=== PATIENT | male | born 1955 | race Caucasian/White ===

== ENCOUNTER 2017-09-15 18:00 | Emergency (ER) | payer OTHER ==
--- NOTE | 2017-09-15 18:13 | CPEKG ---
Heart Rate: 66 RR Interval: 909 P-R Interval: 188 QRSD Interval: 98 QT Interval: 416 QTC Interval: 436 P [place]: 23 QRS [place]: 3 T Wave [place]: 3 EKG Severity - OTHERWISE NORMAL ECG - EKG Impression: SINUS ARRHYTHMIA, RATE 59-72 EKG Impression: VENTRICULAR PREMATURE COMPLEX Electronically Signed By: Thiago King 15-Sep-2017 20:13:19
[2017-09-15 18:27] VITALS: RESP 20; TEMP 98.6
[2017-09-15 18:43] LABS: PLATELET COUNT 329 10^3/uL (150-400)
--- NOTE | 2017-09-15 19:02 | EDPHY ---
H & P Stated Complaint: irregular heartbeat Time Seen by Provider: 09/15/17 18:09 HPI/ROS: This patient reports onset of heart palpitations described as extra beats over the past 4-5 days. He Sondra, master esthetician Wednesday due to the symptoms and is scheduled for an echocardiogram tomorrow and Holter monitor fitting for Wednesday. He reports increased frequency today feeling and extra beat every 3rd to 90 Peter so his heart that feels similar to prior PVCs. The patient's background history is notable for atrial fibrillation [place] [address] Estrada. He had 1 episode of atrial fibrillation thereafter the was cardioverted to sinus rhythm successfully. That was 2 months after the initial ablation. He denies any other associated symptoms with his current heart palpitations. ROS: Constitutional: No fatigue, fevers or chills. HEENT: Mild nasal congestion with slight sinus pressure over the past week. Pulmonary: Occasional cough. No shortness of breath Cardiovascular: No chest pain. Is mild left neck ache 1 of 10 intensity GI: No abdominal pain. No diarrhea. No nausea or vomiting Integumentary: No skin rash or pallor Neuro: No complaints 10 point ROS is otherwise negative Source: Patient Exam Limitations: No limitations - Personal History Current Tetanus/Diphtheria Vaccine: Yes Current Tetanus Diphtheria and Acellular Pertussis (TDAP): Yes - Medical/Surgical History Hx Asthma: No Hx Chronic Respiratory Disease: No Hx Diabetes: No Hx Cardiac Disease: Yes Hx Renal Disease: No Hx Cirrhosis: No Hx Alcoholism: No Hx HIV/AIDS: No Hx Splenectomy or Spleen Trauma: No Other PMH: Celiac Disease; menisectomy right knee; cardiac ablation September 2014 for Afib - Family History Significant Family History: No pertinent family hx - Social History Smoking Status: Current some day smoker (Cigars once or twice a week) Alcohol Use: Occasionally Drug Use: None - Physical Exam Exam: Vital signs are normal General Appearance: Pleasant 62-year-old male appears younger than stated age Alert, no distress. Eyes: Pupils equal and round no pallor or injection. ENT, Mouth: Mucous membranes moist. Respiratory: There are no retractions, lungs are clear to auscultation. Cardiovascular: Regular rate and rhythm. Gastrointestinal: Abdomen is soft and nontender, no masses, bowel sounds normal. Neurological: GCS 15 Skin: Warm and dry, no rashes. Musculoskeletal: Neck is supple nontender. Extremities are symmetrical, full range of motion. Psychiatric: Mood and affect are normal DIFFERENTIAL DIAGNOSIS: After history and physical exam differential diagnosis was considered for PVCs, metabolic disarray, cardiac ischemia, thyroid disease, anemia Constitutional: Initial Vital Signs Temperature (C) 37.0 C 09/15/17 18:25 Heart Rate 69 09/15/17 18:25 Respiratory Rate 20 09/15/17 18:25 Blood Pressure 138/95 H 09/15/17 18:25 O2 Sat (%) 96 09/15/17 18:25 O2 Delivery Mode Room Air Allergies/Adverse Reactions: No Known Allergies Allergy (Verified 09/15/17 18:20) Home Medications: Medication Instructions Recorded Metoprolol Tartrate [Lopressor 25 25 mg PO BID 10/03/14 mg (*)] Aspirin 325 mg (OTC) 08/18/15 Medical Decision Making - Diagnostics EKG Interpretation: 12 lead EKG performed at 18 11 indication are palpitations rule out cardiac ischemia Sinus rhythm at 66 Intervals: Normal throughout [place]: Normal throughout Overall assessment sinus arrhythmia with occasional PVCs ST segments normal throughout. Otherwise normal ED Course/Re-evaluation: IV, monitor with PVCs while here Review of his labs-normal CBC, chemistries, troponin. I spoke with Dr. Estrada his master esthetician. Dr. Estrada is familiar with the patient. We discussed his PVCs. The patient already has an echo cardiogram scheduled for tomorrow and Holter monitor placement for Wednesday. For now Dr. Estrada wishes to hold on any changes in his medications or plan. Patient will have close follow-up and is instructed to drink plenty fluids and avoid excessive caffeine or other stimulants. After workup here tonight, no evidence of acute ischemia or other "red flag findings ". However the patient her stands the need to return emergency department should he have any significant worsening of his symptoms. - Data Points Laboratory Results: Laboratory Results 09/15/17 18:13 09/15/17 18:09/15/17 09/15/17 18: 18: WBC 5.83 10^3/uL 10^3/uL (3.80-9.50) RBC 4.91 10^6/uL 10^6/uL (4.40-6.38) Hgb 15.4 g/dL g/dL (13.7-17.5) Hct 44.4 % % (40.0-51.0) MCV 90.4 fL fL (81.5-99.8) MCH 31.4 pg pg (27.9-34.1) MCHC 34.7 g/dL g/dL (32.4-36.7) RDW 13.7 % % (11.5-15.2) Plt Count 329 10^3/uL 10^3/uL (150-400) MPV 8.6 fL L fL (8.7-11.7) Neut % (Auto) 51.0 % % (39.3-74.2) Lymph % (Auto) 30.4 % % (15.0-45.0) Simpson % (Auto) 15.6 % H % (4.5-13.0) Eos % (Auto) 2.1 % % (0.6-7.6) Baso % (Auto) 0.7 % % (0.3-1.7) Nucleat RBC Rel Count 0.0 % % (0.0-0.2) Absolute Neuts (auto) 2.98 10^3/uL 10^3/uL (1.70-6.50) Absolute Lymphs (auto) 1.77 10^3/uL 10^3/uL (1.00-3.00) Absolute Monos (auto) 0.91 10^3/uL H 10^3/uL (0.30-0.80) Absolute Eos (auto) 0.12 10^3/uL 10^3/uL (0.03-0.40) Absolute Basos (auto) 0.04 10^3/uL 10^3/uL (0.02-0.10) Absolute Nucleated RBC 0.00 10^3/uL 10^3/uL (0-0.01) Immature Gran % 0.2 % % (0.0-1.1) Immature Gran # 0.01 10^3/uL 10^3/uL (0.00-0.10) Sodium 143 mEq/L mEq/L (135-145) Potassium 4.2 mEq/L mEq/L (3.5-5.2) Chloride 100 mEq/L mEq/L (97-110) Carbon Dioxide 24 mEq/l mEq/l (22-31) Anion Gap 19 mEq/L H mEq/L (8-16) BUN 14 mg/dL mg/dL (7-23) Creatinine 0.8 mg/dL mg/dL (0.7-1.3) Estimated GFR > 60 Glucose 81 mg/dL mg/dL (70-100) Calcium 9.4 mg/dL mg/dL (8.5-10.4) Troponin I < 0.012 ng/mL ng/mL (0.000-0.034) TSH 3.250 uIU/mL uIU/mL (0.465-4.680) Departure - Departure Disposition: Home, Routine, Self-Care Clinical Impression: PVCs (premature ventricular contractions) Condition: Good Instructions: Heart Palpitations (ED) Additional Instructions: Diagnosis: Heart palpitations due to PVCs Plan: Drink plenty fluids Continue current medications Avoid excessive caffeine Follow-up tomorrow for echocardiogram and Wednesday for Holter monitor. Return to the emergency department for any significant worsening of your symptoms Referrals: Fox Singh MD [Primary Care Provider] - As per Instructions
[2017-09-15 19:50] VITALS: PULSE 64; O2SAT 97
[2017-09-15 19:51] VITALS: BP 129/86
== END 2017-09-15 19:53 | disposition home or self-care (01) ==
LOC: CED 18:00
DX: I49.3 Ventricular premature depolarization (principal); F17.200 Nicotine dependence, unspecified, uncomplicated
CPT/HCPCS: 80048-PO; 84443-PO; 84484-PO; 85025-PO

== ENCOUNTER 2017-10-22 07:57 | Emergency (ER) | payer OTHER ==
[2017-10-22 08:03] VITALS: RESP 16
--- NOTE | 2017-10-22 08:06 | EDPHY ---
H & P Stated Complaint: pt states he is in afib/since 0100/denies cp HPI/ROS: CHIEF COMPLAINT: "Dorothy like I went into a-fib" HISTORY OF PRESENT ILLNESS: The patient is a 62 y/o male with a history of atrial fibrillation and prior ablation arriving with his complaining of atrial fibrillation onset last night around 22:00, about 10 hours ago. He reports he's had frequent PVCs over the last month particularly at night that feels like "my heart is doing the funky chicken when I lie down." He was evaluated by his toy department manager for this recently with Holter and echocardiogram and advised to take his metoprolol as needed for symptoms, though he decided not to take it due to an upcoming nuclear stress test next week. Last night he woke up feeling like he was in atrial fibrillation describes as "my heart was bouncing out of my chest." It didn't convert with rest so he came to the ED this morning. He denies chest pain , fever, calf pain, dyspnea, leg swelling. He was recently ill with a sinus infection that was treated successfully with Augmentin; he continues with baseline nasal congestion. He is scheduled to follow up with his toy department manager in 2 weeks. He takes a daily aspirin. REVIEW OF SYSTEMS: A ten point review of systems was performed and is negative with the exception of the items mentioned in the HPI. Past medical history: Atrial fibrillation with "a dozen cardioversions;" Celiac' s disease Past surgical history: Cardiac ablation by Dr. 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 Moderate alcohol use. Smokes cigars on weekends. Community Cultural Development Officer : Dr. Duran. PCP: Dr. Alexander. [place] [facility] [place] for similar symptoms General Appearance: Alert. Vital signs reviewed. Blood pressure 133/85 at triage. Eyes: Pupils equal and round, no conjunctival injection, no discharge. Anicteric. ENT, Mouth: Mucous membranes are moist, no oropharyngeal erythema or edema. Neck: No lymphadenopathy, supple. No JVD. Respiratory: Lungs are clear to auscultation; no wheezes, rales, or rhonchi. Cardiovascular: Regular rate and rhythm; no murmur, rub, or gallop. Gastrointestinal: Abdomen is soft and nontender, no masses or organomegaly. Skin: Warm and dry, no rashes on exposed skin, normal color. Back: Nontender to palpation over the thoracolumbar spine. No CVAT. Extremities: No lower extremity edema, no calf tenderness or swelling. Neurological: Alert and oriented. Moving all four extremities easily and equally. Psychiatric: Normal affect. - Personal History Current Tetanus/Diphtheria Vaccine: Unsure - Medical/Surgical History Hx Asthma: No Hx Chronic Respiratory Disease: No Hx Diabetes: No Hx Cardiac Disease: Yes Hx Renal Disease: No Hx Cirrhosis: No Hx Alcoholism: No Hx HIV/AIDS: No Hx Splenectomy or Spleen Trauma: No Other PMH: Celiac Disease; menisectomy right knee; cardiac ablation September 2014 for Afib - Social History Smoking Status: Former smoker Constitutional: Initial Vital Signs Temperature (C) 36.4 C 10/22/17 07:59 Heart Rate 78 10/22/17 07:59 Respiratory Rate 16 10/22/17 07:59 Blood Pressure 133/85 H 10/22/17 07:59 O2 Sat (%) 99 10/22/17 07:59 O2 Delivery Mode Room Air Allergies/Adverse Reactions: No Known Allergies Allergy (Verified 09/15/17 18:20) Home Medications: Medication Instructions Recorded Aspirin 325 mg (OTC) 08/18/15 Lisinopril 10/22/17 Medical Decision Making - Diagnostics EKG Interpretation: 12 lead EKG is interpreted in Trace master View by emergency department physician. ED Course/Re-evaluation: This is a 62 y/o male with a history of atrial fibrillation post ablation presenting with a 10-hour history of atrial fibrillation in the setting of frequent PVCs over the last month. He does not take any antiarrhythmic medications for this, though he was told to take metoprolol when having symptomatic PVCs or atrial fibrillation which he has not taken. He has taken metoprolol in the past and does not like the way it makes him feel. He feels back to baseline upon assessment here. Exam is unremarkable. EKG here shows sinus rhythm. He declined an IV. Plan to consult cardiology. The 12 lead EKG was interpreted by myself. Sinus rhythm rate 82. See hard copy and/or "tracemaster" electronic copy for interpretation. 0913: Consulted with Dr. Duran, toy department manager. He will ask Dr. Kerr, non destructive evaluation specialist, to assess patient in the ED today. 0921: Dr. Duran called back. Neither Dr. Kerr nor Dr. Estrada are available today. He would like the patient to follow up with Dr. Ribeiro sooner than his appointment in 2 weeks for this. Patient will call to schedule an appointment with Dr. Ribeiro after his stress test. Reassessed patient and discussed plan for outpatient follow up and return precautions. He is comfortable with this plan. He is advised to use his metoprolol should he have another episode of atrial fibrillation. Differential Diagnosis: Differential diagnosis includes but is not limited to paroxysmal atrial fibrillation, ACS, valvular disease, thyroid or other endocrine abnormality, effect of stimulant medication/intoxicants. Departure - Departure Disposition: Home, Routine, Self-Care Clinical Impression: Atrial fibrillation Qualifiers: Atrial fibrillation type: unspecified Qualified Code(s): I48.91 - Unspecified atrial fibrillation Condition: Good Instructions: A-fib (Atrial Fibrillation) (ED) Additional Instructions: 1. Call [facility] today and ask to have your appointment moved up to within a week after your stress test on Wednesday at the recommendation of Dr. Duran, who I spoke with today regarding your care. 2. Return to the ED for chest pain, shortness of breath, lightheadedness, or any other worsening of condition. Referrals: Fox Singh MD [Primary Care Provider] - As per Instructions Brandon Ribeiro MD [Medical Doctor] - As per Instructions Report Scribed for: Lizeth Munoz Report Scribed by: Asya Rodriguez Date of Report: 10/22/17 Time of Report: 08:22 Physician Review and Approval Statement: 10/22/17 08:05 Portions of this note were transcribed by the medical nurse. I, Dr. Lizeth Munoz, personally performed the history, physical exam, and medical decision- making; and confirmed the accuracy of the information in the transcribed note.
--- NOTE | 2017-10-22 08:09 | CPEKG ---
Heart Rate: 82 RR Interval: 732 P-R Interval: 176 QRSD Interval: 88 QT Interval: 360 QTC Interval: 421 P [place]: 40 QRS [place]: 27 T Wave [place]: 30 EKG Severity - NORMAL ECG - EKG Impression: SINUS RHYTHM Electronically Signed By: Lizeth Munoz 22-Oct-2017 16:27:18
[2017-10-22 09:52] VITALS: BP 120/82; PULSE 81; TEMP 98.6; O2SAT 96
== END 2017-10-22 09:50 | disposition home or self-care (01) ==
DX: I48.91 Unspecified atrial fibrillation (principal); Z79.82 Long term (current) use of aspirin; Z87.891 Personal history of nicotine dependence

== ENCOUNTER → 2018-06-07 | Outpatient (CLI) | payer OTHER | LOC: CIMAGING 08:54 | PROVIDERS: ATTEND Urology | DX: N20.0 Calculus of kidney (principal); I70.1 Atherosclerosis of renal artery | CPT/HCPCS: 74018-PO ==